=== PATIENT | female | born 1955 | race Caucasian/White ===

== ENCOUNTER → 2017-04-17 | Outpatient (CLI) | payer BC ==
[~2017-04-17] MED LIST: ASPI1TAB22 PO; CEPH500C PO; HYDR-3062 PO; IBUP-1773 PO
--- NOTE | 2017-04-19 08:35 | Diagnostic Imaging Report ---
Bilateral screening mammogram. The current study was also evaluated with a Computer Aided Detection (CAD) system. INDICATION: Screening. No current complaints stated on the questionnaire. COMPARISON: 09/21/2003, and 2000 films are reviewed for comparison. Unfortunately, no more recent mammograms are available to compare. FINDINGS: The breasts are composed of heterogeneously dense parenchyma which may decrease mammographic sensitivity. There is a cluster of calcification seen in the central slightly medial aspect of the left breast which may correlate to an oil cyst. Better evaluation with focal compression magnification views is recommended. The right breast demonstrates no definite mass, architectural distortion, or suspicious calcification. IMPRESSION: Dense breasts. Focal compression magnification views to evaluate central medial left breast calcifications and bilateral ultrasound evaluation is recommended. ACR BI-RADS Category 0: Incomplete. (Needs additional imaging evaluation). Result letter will be mailed to the patient. Note: At least 10% of breast cancer is not imaged by mammography. Dictated by: Dictated on workstation # [id number]
== END ==
LOC: RAD 10:13
PROVIDERS: ATTEND Obstetrics & Gynecology
DX: Z12.31 Encounter for screening mammogram for malignant neoplasm of breast (principal)
CPT/HCPCS: 77067

== ENCOUNTER → 2017-05-29 | Outpatient (CLI) | payer BC, OTHER ==
[~2017-05-29] MED LIST changes: +ASPI-789 PO; -ASPI1TAB22 PO
--- NOTE | 2017-05-29 16:58 | Diagnostic Imaging Report ---
EXAMINATION: Left breast diagnostic mammogram with a Computer Aided Detection (CAD) system. INDICATION: Calcifications in the medial central aspect of the left breast. FINDINGS: The focal compression magnification views in the medial central aspect of the left breast demonstrate a lobulated contour of the area of calcification which may suggest an underlying oil cyst. This is not definitive based on the mammogram, however. IMPRESSION: There is suggestion of a lobulated contour to the minimally heterogeneous calcifications along the central medial aspect of the left breast which may relate to an oil cyst. Ultrasound evaluation is pending. ACR BI-RADS Category 0: Incomplete. (Needs additional imaging evaluation). Result letter will be mailed to the patient. Note: At least 10% of breast cancer is not imaged by mammography. Dictated by: Dictated on workstation # [id number]
--- NOTE | 2017-05-29 20:15 | Diagnostic Imaging Report ---
EXAMINATION: Bilateral breast ultrasound. INDICATION: Suspected oil cyst related calcifications in the medial upper aspect of the left breast. FINDINGS: The four-quadrants and retroareolar region of each breast were scanned with no underlying abnormality seen on the right side. In the left breast there is retroareolar mild duct ectasia. At 10:30 o'clock position, 2 cm from the nipple, on the left side and a hypoechoic lesion with measurement of 8 mm is seen. There is no internal vascularity. This appears to correspond with the size and location of the mammographic abnormality and is likely an oil cyst. IMPRESSION: The lesion at 10:30 position in the left breast is favored to be an oil cyst based on the matching mammographic and ultrasound findings. A six month mammogram and ultrasound of the left breast is recommended to ensure stability. ACR BI-RADS Category 3: Probably benign findings. Result letter will be mailed to the patient. Note: At least 10% of breast cancer is not imaged by mammography. Dictated by: Dictated on workstation # [id number]
== END ==
LOC: RAD 13:13
PROVIDERS: ATTEND Obstetrics & Gynecology
DX: N60.02 Solitary cyst of left breast (principal)

== ENCOUNTER → 2018-10-17 | Outpatient (CLI) | payer MEDICARE, OTHER ==
--- NOTE | 2018-10-17 10:01 | Diagnostic Imaging Report ---
Bilateral hands. Indication: Arthritis. 3 views of both hands were obtained. There are no prior studies available for comparison. There is no fracture, dislocation or acute bony abnormality evident. The osseous structures are well mineralized. There are mild degenerative changes involving the PIP and DIP joints of the left hand. There is also at least moderate degenerative disease of the DIP joint of the second digit and the PIP joint of the fifth digit of the right hand. There is mild degenerative disease involving the other interphalangeal joints. 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 2. The soft tissues are otherwise unremarkable. Impression: 1. There is no evidence for acute bony abnormality of either hand. 2. There is degenerative disease of both hands, particularly the right hand. These degenerative changes are probably secondary to osteoarthritis. 3. There is also chondrocalcinosis of the triangular fibrocartilage on the right. Dictated by: Dictated on workstation # [id number]
--- NOTE | 2018-10-17 11:21 | Diagnostic Imaging Report ---
EXAMINATION: Bilateral feet. INDICATION: Arthritis. Three views of each foot were obtained. There are no prior studies available for comparison. FINDINGS: There is no fracture, dislocation, or acute bony abnormality evident. There is a moderate hallux valgus deformity of the first ray on the left and a mild hallux valgus deformity of the first ray on the right. There is also mild degenerative disease of the phalanges of both feet. There is no sign of a calcaneal spur. The soft tissues are unremarkable. IMPRESSION: 1. There is no evidence for an acute bony abnormality of either foot. 2. There are hallux valgus deformities of both feet with the left foot being the more severely affected. Dictated by: Dictated on workstation # [id number]
== END ==
LOC: RAD 07:40
PROVIDERS: ATTEND Internal Medicine Rheumatology
DX: M19.041 Primary osteoarthritis, right hand (principal); M19.042 Primary osteoarthritis, left hand; M11.241 Other chondrocalcinosis, right hand; M19.071 Primary osteoarthritis, right ankle and foot; M19.072 Primary osteoarthritis, left ankle and foot; M20.11 Hallux valgus (acquired), right foot; M20.12 Hallux valgus (acquired), left foot; M06.041 Rheumatoid arthritis without rheumatoid factor, right hand; M06.042 Rheumatoid arthritis without rheumatoid factor, left hand

== ENCOUNTER → 2019-10-01 | Outpatient (CLI) | payer MEDICARE, OTHER ==
--- NOTE | 2019-10-01 11:40 | Diagnostic Imaging Report ---
PROCEDURE: MRI lumbar spine. TECHNIQUE: Multiplanar, multisequence MRI of the lumbar spine was performed without contrast. INDICATION: Low back pain. COMPARISON: There are no prior studies available for comparison. FINDINGS: The T2 parasagittal images reveal that there is desiccation of the disc at every level and that there is narrowing of the disc spaces at L2-L3 and to a lesser degree at L1-L2. At the L2-L3 level, there is a disc bulge centrally. The disc indents the ventral aspect of the thecal sac and narrows the AP diameter to 14.2 mm. There is mild neural foraminal narrowing on the left at this level. At the L1-L2 level, there is also a disc bulge centrally. The AP diameter of the thecal sac is narrowed to 14 mm. There is no significant neural foraminal narrowing at this level. At the L3-L4 level, there is no evidence for spinal stenosis or nerve root encroachment. At L4-L5, there is no sign of central stenosis. There is mild narrowing of the neural foramen on the left, however. At L5-S1, there is no evidence for central stenosis. There is mild narrowing of the neural foramina bilaterally. There is no abnormal signal arising from the osseous structures or the cord to suggest an acute abnormality. There is no sign of a paraspinal mass. However, there does appear to be dilatation of the left renal pelvis and the visualized left ureter. There is no sign of obstructive calculus or mass, but the distal left ureter was not imaged in its entirety. I would recommend that CT of the abdomen and pelvis be performed for further evaluation. IMPRESSION: 1. There is degenerative disc and bony disease at L2-L3 and to a lesser extent at L1-L2. There is no evidence for spinal stenosis or any significant nerve root encroachment at either of these two levels or at any other level of the lumbar spine. 2. There is no sign of an acute bony abnormality or of a cord lesion. 3. The left renal pelvis and left ureter do appear to be dilated. The reason for this is not certain. Recommendations as above. Dictated by: Dictated on workstation # [id number]
--- NOTE | 2019-10-01 18:05 | Diagnostic Imaging Report ---
EXAMINATION: Digital mammogram bilateral diagnostic. INDICATION: Bening neoplasm of the right breast. COMPARISON: This study was compared to the prior exam of 04/17/2017. At this time, there are no current complaints. The current study was also evaluated with a Computer Aided Detection (CAD) system. 3-D tomosynthesis was also performed and reviewed. FINDINGS: The previous study noted that the fibroglandular tissue in both breasts was dense. There also appeared to be an 8 mm oil cyst in the 10:30 position of the left breast. On this exam, that finding is not as conspicuous. There is a suggestion of a small 3 mm fairly well-circumscribed partially calcified nodular density in this region. I would recommend that this area be evaluated by ultrasound to better characterize this finding. There are a few benign-appearing calcifications in each breast. Vascular calcifications are also seen bilaterally. There is no primary or secondary sign of malignancy noted. IMPRESSION: 1. The suspected oil cyst in the left breast seen previously is no longer evident. There is now a small benign-appearing partially calcified nodular density in that same area, however. Ultrasound would be recommended to better characterize that finding. 2. There is no evidence for malignancy involving the right breast. ACR BI-RADS Category 0: Incomplete. (Needs additional imaging evaluation). Result letter will be mailed to the patient. Note: At least 10% of breast cancer is not imaged by mammography. Dictated by: Dictated on workstation # [id number]
--- NOTE | 2019-10-01 18:17 | Diagnostic Imaging Report ---
EXAMINATION: Unilateral left breast ultrasound, Limited. INDICATION: Abnormal mammogram. FINDINGS: The diagnostic mammogram performed earlier today noted a small 3 mm partially calcified nodular density in the retroareolar region of the left breast. On the prior left breast ultrasound exam of 05/29/2017, there was a roughly 8 mm complicated hypoechoic area in this region. This was felt to be related to an oil cyst. On this exam, that finding is no longer evident. There does appear to be a small 6 x 5 x 5 mm simple cyst now present in the 9 o'clock position of the breast, roughly 1 cm from the nipple. I suspect that this does correspond to the density seen on the mammogram. There is no solid mass to suggest malignancy. IMPRESSION: 1. The suspected oil cyst seen on the previous exam is no longer identified on this study. However, there is now a benign-appearing cyst in the retroareolar region of the breast. This would correspond to the density seen on mammogram. 2. There is no solid mass to suggest malignancy. 3. The patient should have her annual screening mammogram on schedule in September of 2020. ACR BI-RADS Category 2: Benign findings. Dictated by: Dictated on workstation # [id number]
== END ==
LOC: RAD 08:54
PROVIDERS: ATTEND Family Medicine
DX: D24.1 Benign neoplasm of right breast (principal); D24.2 Benign neoplasm of left breast; M51.16 Intervertebral disc disorders with radiculopathy, lumbar region; M47.26 Other spondylosis with radiculopathy, lumbar region
CPT/HCPCS: 72148; 76642; 77066

== ENCOUNTER → 2019-10-09 | Outpatient (CLI) | payer MEDICARE ==
--- NOTE | 2019-10-09 14:33 | Diagnostic Imaging Report ---
PROCEDURE: CT abdomen and pelvis without contrast. TECHNIQUE: Multiple contiguous axial images were obtained through the abdomen and pelvis without the use of intravenous contrast. Auto Exposure Controls were utilized during the CT exam to meet ALARA standards for radiation dose reduction. INDICATION: Dilatation of the left ureter noted on recent MRI. The study is performed for further evaluation. COMPARISON: Comparison is made with MRI exam from 10/01/2019. FINDINGS: The lung bases are clear. Liver contains some low densities, too small to characterize. Gallbladder is decompressed. No biliary ductal dilatation is seen. Pancreas and spleen are unremarkable on this noncontrast study. No adrenal mass is detected. Right kidney is unremarkable. Left kidney is enlarged. Left hydroureteronephrosis is noted correlating with the MRI abnormality. However, no definite ureteral calculus is seen. The bladder is moderately distended. There is some questionable wall thickening involving the anterior aspect of the left bladder. Aorta is calcified but nonaneurysmal. The bowel loops are normal in caliber. There is some free fluid in the pelvis. IMPRESSION: 1. Left renal enlargement with moderate left hydroureteronephrosis. No definite calculus in the left ureter is seen. There is some questionable wall thickening of the urinary bladder. Cystoscopy with retrograde pyelography may be useful for further evaluation. Urologic consult could be performed. 2. Indeterminate low-density lesions within the liver. Hepatic sonography may be useful to evaluate for cystic lesions. Dictated by: Dictated on workstation # [id number]
== END ==
LOC: RAD 13:47
PROVIDERS: ATTEND Family Medicine
DX: N28.82 Megaloureter (principal); N13.30 Unspecified hydronephrosis; K76.9 Liver disease, unspecified; N28.81 Hypertrophy of kidney
CPT/HCPCS: 74176

== ENCOUNTER 2019-11-28 16:17 | Emergency (ER) | payer MEDICARE ==
[~2019-11-28] VITALS: Ht 154 cm; Wt 50.0 kg
[2019-11-28] VITALS (7 sets, daily range): BP systolic 100–142; BP diastolic 64–87
[2019-11-28] MEDS ORDERED: ONDANSETRON 4 MG/2 ML (SDV) Z0FRAN ONE ×2 (16:33→20:21)
[2019-11-28] MEDS ORDERED: NS IV 1000 ML 2,000 ML ONE (16:34)
[2019-11-28] MEDS ORDERED: PANTOPRAZOLE 40 MG (PROTONIX) VIAL IV ONE (16:45)
--- NOTE | 2019-11-28 16:45 | ED GI ---
General Chief Complaint: Abdominal/GI Problems Stated Complaint: VOMITTING BLOOD, BACK PAIN Source of Information: Patient Exam Limitations: No Limitations History of Present Illness Date Seen by Provider: Nov 28, 2019 Time Seen by Provider: 16:43 Initial Comments To ER with reports of vomiting blood onset this afternoon at about 1:30 PM. She has some chronic low back pain no different than usual. She does have nausea and some abdominal pain as well. She denies any alcohol use, denies any history of hepatitis. Denies any history of GI bleeding. Eyes noticing any dark stools. She follows with Dr. Baez and states that she was told recently that she does have anemia but she doesn't know how low her hemoglobin was. She takes hydrocodone for chronic back pain and lorazepam for anxiety. She is otherwise healthy to the best of her knowledge. Timing/Duration: 1-2 Days Severity/Quality: Moderate Location: Generalized Abdomen Radiation: No Radiation Activities at Onset: None Associated Symptoms: Nausea/Vomiting Allergies and Home Medications Allergies Coded Allergies: codeine (Verified Allergy, Unknown, 04/07/16) erythromycin base (Verified Allergy, Unknown, 04/07/16) Home Medications Aspirin/Acetaminophen/Caffeine 1 Each Tablet, 2 EACH PO PRN, (Reported) Cephalexin 500 Mg Capsule, 500 MG PO TID Prescribed by: ABIOLA OLSEN on 04/07/16 1602 Hydrocodone/Acetaminophen 1 Each Tablet, 1 EACH PO Q4H, (Reported) Ibuprofen 600 Mg Tablet, 600 MG PO Q6H PRN for PAIN, (Reported) Lorazepam 1 Mg Tablet, 1 MG PO Q8H, (Reported) Losartan Potassium 25 Mg Tablet, 25 MG PO DAILY, (Reported) Patient Home Medication List Home Medication List Reviewed: Yes Review of Systems Review of Systems Constitutional: see HPI EENTM: No Symptoms Reported Respiratory: No Symptoms Reported Cardiovascular: No Symptoms Reported Gastrointestinal: See HPI, Abdominal Pain Genitourinary: No Symptoms Reported Musculoskeletal: no symptoms reported Skin: no symptoms reported Psychiatric/Neurological: No Symptoms Reported Endocrine: No Symptoms Reported Hematologic/Lymphatic: No Symptoms Reported Past Wnqeluu-Hnwabg-Yeyegf Hx Patient Social History Alcohol Use: Denies Use Recreational Drug Use: No Smoking Status: Former Smoker Former Smoker, Quit: Dec 19, 2011 Recent Foreign Travel: No Contact w/Someone Who Travel: No Immunizations Up To Date Tetanus Booster (TDap): More than 5yrs Past Medical History Surgeries: Yes Section, Tubal Ligation Respiratory: No Cardiac: Yes Hypertension Neurological: No Reproductive Disorders: No Sexually Transmitted Disease: No Genitourinary: No Gastrointestinal: No Musculoskeletal: Yes (BLUGING DISKS) Rheumatoid Arthritis, Chronic Back Pain Endocrine: No Cancer: No Psychosocial: No Integumentary: No Blood Disorders: No Family Medical History No Pertinent Family Hx Physical Exam Vital Signs Vital Signs - First Documented 11/28/19 11/28/19 16:37 19:03 Temp 35.8 Pulse 78 Resp 20 B/P (MAP) 101/60 (74) Pulse Ox 99 O2 Delivery Room Air Capillary Refill : Height/Weight/BMI Height: 5'1" Weight: 130lbs. oz. 58.100651kn; BMI Method:Stated General Appearance: WD/WN, no apparent distress, thin, other (pale, pale conjunctivae, slightly tachycardic with a pulse narrow complex 104 and a blood pressure of 86 systolic. 2 large-bore IVs were started, 2 L of IV fluids hanging. Being crossmatched for 3 units of packed red cells.) HEENT: PERRL/EOMI, normal ENT inspection Respiratory: no respiratory distress, no accessory muscle use Cardiovascular: regular rate, rhythm, no murmur Gastrointestinal: normal bowel sounds, soft, tenderness Neurologic/Psychiatric: alert, normal mood/affect, oriented x 3 Skin: normal color, warm/dry Progress/Results/Core Measures Results/Orders Lab Results Laboratory Tests Test 11/28/19 16:30 Range/Units White Blood Count 12.3 H 4.3-11.0 10^3/uL Red Blood Count 2.79 L 4.35-5.85 10^6/uL Hemoglobin 7.9 L 11.5-16.0 G/DL Hematocrit 26 L 35-52 % Mean Corpuscular Volume 93 80-99 FL Mean Corpuscular Hemoglobin 28 25-34 PG Mean Corpuscular Hemoglobin Concent 31 L 32-36 G/DL Red Cell Distribution Width 15.0 H 10.0-14.5 % Platelet Count 415 H 130-400 10^3/uL Mean Platelet Volume 10.7 H 7.4-10.4 FL Neutrophils (%) (Auto) 67 42-75 % Lymphocytes (%) (Auto) 22 12-44 % Monocytes (%) (Auto) 8 0-12 % Eosinophils (%) (Auto) 2 0-10 % Basophils (%) (Auto) 0 0-10 % Neutrophils # (Auto) 8.3 H 1.8-7.8 X 10^3 Lymphocytes # (Auto) 2.7 1.0-4.0 X 10^3 Monocytes # (Auto) 1.0 0.0-1.0 X 10^3 Eosinophils # (Auto) 0.3 0.0-0.3 10^3/uL Basophils # (Auto) 0.1 0.0-0.1 10^3/uL Prothrombin Time 15.1 H 12.2-14.7 SEC INR Comment 1.1 0.8-1.4 Activated Partial Thromboplast Time 33 24-35 SEC Sodium Level 136 135-145 MMOL/L Potassium Level 3.6 3.6-5.0 MMOL/L Chloride Level 105 98-107 MMOL/L Carbon Dioxide Level 16 L 21-32 MMOL/L Anion Gap 15 H 5-14 MMOL/L Blood Urea Nitrogen 13 7-18 MG/DL Creatinine 0.95 0.60-1.30 MG/DL Estimat Glomerular Filtration Rate 59 BUN/Creatinine Ratio 14 Glucose Level 231 H 70-105 MG/DL Calcium Level 8.2 L 8.5-10.1 MG/DL Corrected Calcium 8.9 8.5-10.1 MG/DL Total Bilirubin 0.1 0.1-1.0 MG/DL Aspartate Amino Transf (AST/SGOT) 16 5-34 U/L Alanine Aminotransferase (ALT/SGPT) 14 0-55 U/L Alkaline Phosphatase 95 40-136 U/L Troponin I < 0.028 <0.028 NG/ML Total Protein 6.0 L 6.4-8.2 GM/DL Albumin 3.1 L 3.2-4.5 GM/DL Lipase 40 8-78 U/L Smear Scan YES My Orders Orders - CATA VILLARREAL APRN Cbc With Automated Diff (11/28/19 16:41) Comprehensive Metabolic Panel (11/28/19 16:41) Protime With Inr (11/28/19 16:41) Partial Thromboplastin Time (11/28/19 16:41) Ua Culture If Indicated (11/28/19 16:41) Ed Iv/Invasive Line Start (11/28/19 16:41) Red Cells Leukocytes Reduced (11/28/19 16:41) Pantoprazole Injection (Protonix Injecti (11/28/19 16:45) Chest 1 View, Ap/Pa Only (11/28/19 16:41) Type And Screen (11/28/19 16:41) Octreotide Injection (Sandostatin Inje (11/28/19 17:00) Ns (Ivpb) (Sodium C... W/Octreotide Inj (11/28/19 17:00) Ekg Tracing (11/28/19 16:52) Lipase (11/28/19 16:52) Troponin I (11/28/19 16:52) Ct Abdomen/Pelvis W (11/28/19 16:52) I-Stat Bedside Testing (11/28/19 16:52) Iohexol Injection (Omnipaque 350 Mg/Ml 1 (11/28/19 17:30) Received Contrast (Hold Metformin- Contr (11/28/19 17:30) Sodium Chloride Flush (Catheter Flush Sy (11/28/19 17:30) Ns (Ivpb) (Sodium Chloride 0.9% Ivpb Bag (11/28/19 17:30) Fentanyl Injection (Sublimaze Injection (11/28/19 18:44) Ns Iv 500 Ml (Sodium Chloride 0.9%) (11/28/19 18:44) Piperacillin Sodium/Tazobactam (Zosyn Vi (11/28/19 19:00) Octreotide Drip (Octreotide Drip) (11/28/19 19:03) Ondansetron Injection (Zofran Injectio (11/28/19 20:30) Ondansetron Injection (Zofran Injectio (11/28/19 20:21) Fentanyl Injection (Sublimaze Injection (11/28/19 20:40) Tranexamic Acid Injection (Cyklokapron I (11/28/19 20:42) Tranexamic Acid Injection (Cyklokapron I (11/28/19 20:44) Ns (Ivpb) (Sodium Chloride 0.9%) (11/28/19 20:45) Medications Given in ED Current Medications Medications Dose Ordered Sig/Bryce Route Start Time Stop Time Status Last Admin Dose Admin Fentanyl Citrate 100 mcg STK-MED ONCE .ROUTE 11/28/19 18:44 11/28/19 18:47 DC 11/28/19 18:52 75 MCG Fentanyl Citrate 100 mcg STK-MED ONCE .ROUTE 11/28/19 20:40 11/28/19 20:45 DC 11/28/19 20:47 100 MCG Iohexol 100 ml ONCE ONCE IV 11/28/19 17:30 11/28/19 17:31 DC 11/28/19 17:46 66 ML Octreotide Acetate 50 mcg/ Sodium Chloride 51 ml @ 204 mls/hr ONCE ONCE IV 11/28/19 17:00 11/28/19 17:14 DC 11/28/19 19:16 204 MLS/HR Ondansetron HCl 4 mg STK-MED ONCE .ROUTE 11/28/19 16:33 11/28/19 16:38 DC 11/28/19 16:36 4 MG Ondansetron HCl 4 mg STK-MED ONCE .ROUTE 11/28/19 20:21 11/28/19 20:25 DC 11/28/19 20:34 4 MG Pantoprazole 80 mg ONCE ONCE IV 11/28/19 16:45 11/28/19 16:46 DC 11/28/19 17:16 80 MG Piperacillin Sod/ Tazobactam Sod 4.5 gm/Sodium Chloride 100 ml @ 200 mls/hr ONCE ONCE IV 11/28/19 19:00 11/28/19 19:29 DC 11/28/19 19:32 200 MLS/HR Sodium Chloride 10 ml NEEDED PRN IV 11/28/19 17:30 11/28/19 21:26 DC 11/28/19 17:47 10 ML Sodium Chloride 100 ml ONCE ONCE IV 11/28/19 17:30 11/28/19 17:31 DC 11/28/19 17:47 80 ML Sodium Chloride 500 ml @ ud STK-MED ONCE .ROUTE 11/28/19 18:44 11/28/19 18:47 DC 11/28/19 19:05 500 MLS/HR Sodium Chloride 2,000 ml @ ud STK-MED ONCE .ROUTE 11/28/19 16:34 11/28/19 16:38 DC 11/28/19 16:36 1,000 MLS/HR Tranexamic Acid 1,000 mg STK-MED ONCE IV 11/28/19 20:42 11/28/19 20:47 DC 11/28/19 20:47 1,000 MG Tranexamic Acid 1,000 mg STK-MED ONCE IV 11/28/19 20:44 11/28/19 20:48 DC 11/28/19 20:51 1,000 MG Vital Signs/I&O 11/28/19 11/28/19 11/28/19 11/28/19 16:37 19:03 19:20 19:52 Temp 35.8 36.4 36.9 36.4 Pulse 78 105 111 94 Resp 20 12 13 14 B/P (MAP) 101/60 (74) 100/74 102/84 126/64 Pulse Ox 99 96 98 99 O2 Delivery Room Air Room Air Room Air 11/28/19 11/28/19 11/28/19 11/28/19 20:31 20:45 20:59 20:59 Temp 36.1 36.4 36.3 36.3 Pulse 106 98 102 102 Resp 12 21 18 18 B/P (MAP) 142/87 126/70 132/75 132/75 Pulse Ox 96 100 100 100 O2 Delivery Room Air Room Air Room Air Room Air 11/28/19 21:15 Temp 36.3 Pulse 102 Resp 18 B/P (MAP) 132/75 Pulse Ox 100 O2 Delivery Room Air Diagnostic Imaging Diagonstic Imaging: Xray, CT Plain Films/CT/US/NM/MRI: chest Comments NAME: AIRAM WHIPPLE [facility] REC#: [id number] PT STATUS: REG ER : 1955 PHYSICIAN: CATA VILLARREAL APRN ADMIT DATE: 11/28/19/ER Draft Date of Exam:11/28/19 CHEST 1 VIEW, AP/PA ONLY INDICATION: Back pain. TECHNIQUE: Single view chest, 5:04 p.m. CORRELATION STUDY: None. FINDINGS: Heart size is within normal limits. There is some fullness of the right hilum. Left hilum unremarkable. Pulmonary vasculature overall within normal limits. Peripheral lung amaral are clear and symmetrically well inflated. IMPRESSION: Increased density at the right hilum. This may be of no significance. The possibility of adenopathy and/or mass is not excluded. Given no priors for comparison, short-term followup repeat two-view chest imaging and/or CT imaging would be recommended. Dictated on workstation # [id number] Dict: 11/28/19 1726 Trans: 11/28/19 1735 [facility] [id number] Interpreted by: VITOR YEH DO Electronically signed by: NAME: AIRAM WHIPPLE [facility] REC#: [id number] PT STATUS: REG ER : 1955 PHYSICIAN: CATA VILLARREAL WELDING SPECIALIST ADMIT DATE: 11/28/19/ER Draft Date of Exam:11/28/19 CT ABDOMEN/PELVIS W PROCEDURE: CT abdomen and pelvis with contrast. TECHNIQUE: Multiple contiguous axial images were obtained through the abdomen and pelvis after administration of intravenous contrast. Auto Exposure Controls were utilized during the CT exam to meet ALARA standards for radiation dose reduction. INDICATION: Vomiting blood, chronic back pain. CORRELATION STUDY: 10/09/2019. FINDINGS: There is abnormal heterogeneous masslike density at the left upper quadrant. This includes gas. This is inseparable from the distal pancreas and also blurs inseparably with the posterior aspect of the stomach. This area measures approximately 5.2 x 4.5 cm. No significant free intraperitoneal air is otherwise suggested. The celiac trunk is partially obscured and involved with this mass. The superior mesenteric artery courses along the inferior margins. Additionally, contrast filling of the splenic vein cannot be confirmed. There are several rounded low-density foci scattered throughout the liver. Some of these may very well reflect cysts. There are additional areas of heterogeneity, particularly at the extreme dome for which underlying mass is not excluded. Spleen and right adrenal gland are unremarkable. Left adrenal gland is somewhat obscured. Right kidney is unremarkable. There is rather extensive hydronephrosis of the left kidney demonstrating some thinning of the renal parenchyma. Delayed nephrogram and no significant contrast into the dilated collecting system. Urinary bladder unremarkable. Low-density masses in the pelvis are again demonstrated. Largest is more posteriorly and inferiorly measuring 8.3 x 7.6 cm. Additional one slightly more anterior and superiorly perhaps changed in position or new since prior study, 4.4 x 4.0 cm. Osseous structures demonstrate no acute finding. There is advanced degenerative changes and multilevel disc space narrowing. IMPRESSION: 1. Suggested abnormal masslike density in the left upper quadrant. This appears to involve the pancreatic tail but also blurs inseparably with the posterior stomach. Possibility of a pancreatic mass with erosion into the stomach is a consideration. There also appears to be at least partial encasement of the celiac artery and close proximity to the superior mesenteric artery. Portal vein cannot be confirmed as patent and is also likely involved. 2. Continued dilated left collecting system with delayed function of the left kidney. 3. Pelvic masses are present. These may very well be attributed to the ovaries. Possibly cystadenoma or cystadenocarcinoma is definitely in the differential. 4. Continued low-density lesions within the liver. Dictated on workstation # [id number] Dict: 11/28/19 1756 Trans: 11/28/19 1818 [facility] [id number] Interpreted by: VITOR YEH DO Electronically signed by: Departure Communication (Admissions) Spoke with Dr. Alvarado given symptoms and CT findings, would recommend transfer to for interventional radiology for possible embolization of this bleeding mass. 1842-spoken with transfer center. They'll call back. At this time she would like something for pain in her back from her "bulging disks". Her blood pressure is 151/77 her heart rate is 94. She is alert oriented and mentating well. I discussed with her the need for transfer to tertiary care center such as , she is agreeable. 1932-Awaiting acceptance from . Vitals remain stable, still no bleeding here. Zosyn 4.5g IV given. Octreotide going at 50mcg/hr. 1st unit of blood has been transfused. 2nd unit infusing now. 1939 spoke with [facility] hospitalist Dr. Adkins has accepted the patient, she'll go to the medical floor. Full CODE STATUS, arterial blood gas has been requested. Her vitals remain stable at 130/90, heart rate 94. Pain is well-controlled after 75 g of fentanyl. I do feel that she needs to go by air transport because of her initial presentation and the possibility of rebleeding in route. We are 2 hours at least away from the [facility], I need to minimize out of hospital transport time as there would be very little a transport crew couldn't do in the out of hospital setting to stabilize her. 2009-patient had an episode of vomiting about 300 cc of right red blood. Her blood pressure subsequently fell immediately to about 60 systolic heart rate increased to 110. The second and third units of packed red cells were transfused. FFP is being thought but will take about 30 minutes and will not be ready by the time helicopter leaves. She was given additional third liter of IV fluids which is infusing at the time of her discharge. At time of her discharge her blood pressure had increased to 109 systolic with heart rate reduction to 93. We did give 1 g of TX A IV as a bolus and 1 g as an infusion over 8 hours. I did call the [facility] back to update that floor bed status would be insufficient for her and she'll need intensive care unit. They spoke with the furniture decals inspector who has accepted the patient to the ICU, they had some concerns about airway protection on the way up there, however the patient is alert and talking to us, I do not have concerns of insufficient airway nor does [facility]. For this reason she is not intubated prior to transfer. Impression Primary Impression: Hemorrhagic shock Additional Impressions: GI bleed Pancreatic mass Disposition: XFER SHT-TRM HOSP Condition: Critical Departure-Patient Inst. Referrals: NO,LOCAL PHYSICIAN (PCP/Family) Primary Care Physician CATA VILLARREAL APRN Nov 28, 2019 16:45
[2019-11-28] MEDS ORDERED: LOSA25TA41 PO (16:50)
[2019-11-28] MEDS ORDERED: LORA1TAB PO (16:50)
[2019-11-28 16:56] LABS: BASOPHILS # (AUTO) 0.1 10^3/uL (0.0-0.1); BASOPHILS % (AUTO) 0 % (0-10); EOSINOPHILS # (AUTO) 0.3 10^3/uL (0.0-0.3); EOSINOPHILS % (AUTO) 2 % (0-10); HEMATOCRIT 26 % (35-52); HEMOGLOBIN 7.9 G/DL (11.5-16.0); INR 1.1 (0.8-1.4); LYMPHOCYTES # (AUTO) 2.7 X 10^3 (1.0-4.0); LYMPHOCYTES % (AUTO) 22 % (12-44); MEAN CORPUSCULAR HEMOGLOBIN 28 PG (25-34); MEAN CORPUSCULAR HGB CONC 31 G/DL (32-36); MEAN CORPUSCULAR VOLUME 93 FL (80-99); MEAN PLATELET VOLUME 10.7 FL (7.4-10.4); MONOCYTES % (AUTO) 8 % (0-12); NEUTROPHILS # (AUTO) 8.3 X 10^3 (1.8-7.8); NEUTROPHILS % (AUTO) 67 % (42-75); PLATELET COUNT 415 10^3/uL (130-400); PROTHROMBIN TIME PATIENT 15.1 SEC (12.2-14.7); WHITE BLOOD COUNT 12.3 10^3/uL (4.3-11.0)
[2019-11-28] MEDS ORDERED: OCTREOTIDE INJECTION 500 MCG in NS (IVPB) 99 ML IV SCH (17:00)
[2019-11-28] MEDS ORDERED: OCTREOTIDE INJECTION 50 MCG in NS (IVPB) 50 ML IV ONE (17:00)
[2019-11-28 17:10] LABS: ALBUMIN 3.1 GM/DL (3.2-4.5); BILIRUBIN,TOTAL 0.1 MG/DL (0.1-1.0); CALCIUM 8.2 MG/DL (8.5-10.1); CREATININE SERUM 0.95 MG/DL (0.60-1.30); POTASSIUM 3.6 MMOL/L (3.6-5.0)
[2019-11-28 17:16] LABS: SMEAR SCAN COMMENT YES
[2019-11-28 17:28] LABS: LIPASE 40 U/L (8-78)
[2019-11-28] MEDS ORDERED: CATHETER FLUSH 10 ML SYR IV PRN (17:30)
[2019-11-28] MEDS ORDERED: IOHEXOL 350 MG/ML 100 ML (OMNIPAQUE 350) VIAL IV ONE (17:30)
[2019-11-28] MEDS ORDERED: NS 100 ML (IVPB) BAG IV ONE (17:30)
[2019-11-28] MEDS ORDERED: HOLD METFORMIN - RECEIVED CONTRAST 20 ML VIAL IV SCH (17:30)
--- NOTE | 2019-11-28 17:36 | Diagnostic Imaging Report ---
INDICATION: Back pain. TECHNIQUE: Single view chest, 5:04 p.m. CORRELATION STUDY: None. FINDINGS: Heart size is within normal limits. There is some fullness of the right hilum. Left hilum unremarkable. Pulmonary vasculature overall within normal limits. Peripheral lung amaral are clear and symmetrically well inflated. IMPRESSION: Increased density at the right hilum. This may be of no significance. The possibility of adenopathy and/or mass is not excluded. Given no priors for comparison, short-term followup repeat two-view chest imaging and/or CT imaging would be recommended. Dictated by: Dictated on workstation # [id number]
--- NOTE | 2019-11-28 18:19 | Diagnostic Imaging Report ---
PROCEDURE: CT abdomen and pelvis with contrast. TECHNIQUE: Multiple contiguous axial images were obtained through the abdomen and pelvis after administration of intravenous contrast. Auto Exposure Controls were utilized during the CT exam to meet ALARA standards for radiation dose reduction. INDICATION: Vomiting blood, chronic back pain. CORRELATION STUDY: 10/09/2019. FINDINGS: There is abnormal heterogeneous masslike density at the left upper quadrant. This includes gas. This is inseparable from the distal pancreas and also blurs inseparably with the posterior aspect of the stomach. This area measures approximately 5.2 x 4.5 cm. No significant free intraperitoneal air is otherwise suggested. The celiac trunk is partially obscured and involved with this mass. The superior mesenteric artery courses along the inferior margins. Additionally, contrast filling of the splenic vein cannot be confirmed. There are several rounded low-density foci scattered throughout the liver. Some of these may very well reflect cysts. There are additional areas of heterogeneity, particularly at the extreme dome for which underlying mass is not excluded. Spleen and right adrenal gland are unremarkable. Left adrenal gland is somewhat obscured. Right kidney is unremarkable. There is rather extensive hydronephrosis of the left kidney demonstrating some thinning of the renal parenchyma. Delayed nephrogram and no significant contrast into the dilated collecting system. Urinary bladder unremarkable. Low-density masses in the pelvis are again demonstrated. Largest is more posteriorly and inferiorly measuring 8.3 x 7.6 cm. Additional one slightly more anterior and superiorly perhaps changed in position or new since prior study, 4.4 x 4.0 cm. Osseous structures demonstrate no acute finding. There is advanced degenerative changes and multilevel disc space narrowing. IMPRESSION: 1. Suggested abnormal masslike density in the left upper quadrant. This appears to involve the pancreatic tail but also blurs inseparably with the posterior stomach. Possibility of a pancreatic mass with erosion into the stomach is a consideration. There also appears to be at least partial encasement of the celiac artery and close proximity to the superior mesenteric artery. Portal vein cannot be confirmed as patent and is also likely involved. 2. Continued dilated left collecting system with delayed function of the left kidney. 3. Pelvic masses are present. These may very well be attributed to the ovaries. Possibly cystadenoma or cystadenocarcinoma is definitely in the differential. 4. Continued low-density lesions within the liver. Dictated by: Dictated on workstation # [id number]
[2019-11-28] MEDS ORDERED: NS IV 500 ML 500 ML ONE (18:44)
[2019-11-28] MEDS ORDERED: fentaNYL INJECTION 100 MCG/2 ML AMP ONE ×2 (18:44→20:40)
[2019-11-28] MEDS ORDERED: PIPERACILLIN SODIUM/TAZOBACTAM 4.5 GM in NS (IVPB) 100 ML IV ONE (19:00)
[2019-11-28] MEDS ORDERED: OCTREOTIDE DRIP KIT ONE (19:03)
[2019-11-28] MEDS ORDERED: ONDANSETRON 4 MG/2 ML (SDV) Z0FRAN IVP ONE (20:30)
--- NOTE | 2019-11-28 20:30 | NUR ---
PT VOMITTED APPROX. 250ML BRIGHT RED BLOOD. BP DROPPED. HATTIE RIDDLE NOTIFIED. NEW ORDERS RECEIVED.
[2019-11-28] MEDS ORDERED: TRANEXAMIC ACID 100 MG/ML 10 ML INJECTION IV ONE ×2 (20:42→20:44)
[2019-11-28] MEDS ORDERED: NS (IVPB) 250 ML ONE (20:45)
--- NOTE | 2019-11-28 21:15 | NUR ---
2 units prbc's sent with flight crew
[2019-11-29] MEDS ORDERED: NS IV 1000 ML 1,000 ML ONE (03:17)
== END 2019-11-28 21:15 | disposition short-term general hospital (02) ==
LOC: EDUNIT# 16:17 → ER 16:19
DX: K92.2 Gastrointestinal hemorrhage, unspecified (principal); K86.89 Other specified diseases of pancreas; R57.8 Other shock; I10 Essential (primary) hypertension; M06.9 Rheumatoid arthritis, unspecified; Z88.1 Allergy status to other antibiotic agents; Z88.5 Allergy status to narcotic agent; Z79.82 Long term (current) use of aspirin; Z87.891 Personal history of nicotine dependence; Z98.51 Tubal ligation status
CPT/HCPCS: 36415; 71045; 74177; 80053; 83690; 84484; 85025; 85610; 85730; 86850; 86900; 86901; 86920; 93005; 96361; 96365; 96366; 96367; 96375; 96376; 99291